=== PATIENT | female | born 1980 | race Caucasian/White ===

== ENCOUNTER → 2016-11-19 | Outpatient (CLI) | payer OTHER ==
--- NOTE | 2016-11-19 10:52 | US ---
November 19, [address] Dino Calero, Thank you for requesting consultation and a detailed obstetrical ultrasound for Mrs. Collier secondary to advanced maternal age. As you know, Slick is a 35 year old G 3, P 1011 . Her due date is 7 by by 10 week ultrasound. Her current gestational age based on this dating is 19 weeks 5 days. He r genetic screening revealed a reassuring NIPT. Her obstetrical history reveals a miscarriage and a term section for failure to dilate. She is having a repeat section. ULTRASOUND Number of fetuses: 1 Placental location: Posterior; no evidence of previa Placental cord insertion: Intraplacental presentation: Breech Cervix: 3.8 cm viewed transabdominally Maximum Vertical Pocket: 4.0 cm The adnexa were evaluated. No pathology was seen. Right ovary is visualized and appears normal. It measures 2.0 x 0.8 x 1.9 cm. Left ovary is visualized and appears normal. It measures 1.9 x 1.1 x 2.1 cm. MEASUREMENTS: Biparietal diameter: 45 mm 19 weeks, 5 days Head circumference: 173 mm 19 weeks, 6 days Abdominal circumference: 146 mm 20 weeks, 0 days Femur length: 30 mm 19 weeks, 2 days Humerus length: 31 mm 20 weeks, 2 days Transcerebellar diameter: 21 mm 20 weeks, 1 days Average ultrasound age: 19 weeks, 5 days Estimated weight: 301 gm weight percentile: 38% ANATOMY Supratentorial brain: Normal including views of the falx, cavum septum pellucidum and choroids Lateral Ventricle: Normal, measuring 5.0 mm Posterior fossa: Normal including the cerebellum and cisterna magna Spine: Normal Nuchal fold: 4.5 mm normal Face: Normal views of the lip and nose area Profile: Normal Palate: Normal appearance of the alveolar ridge Cardiac Exam: Four chamber view of the heart: Normal including intraventricular septum Left Ventricular Outflow Tract: Normal Right Ventricular Outflow Tract: Normal 3 Vessel View: Normal Tracheal View: Normal Aortic Arch: Normal Ductal Arch: Normal SVC/IVC: Limited views Heart Rate: 147 bpm Diaphragm: No overt abnormalities have been detected Stomach: Normal Umbilical cord insertion: Normal Right kidney: Normal Left kidney: Normal Bladder: Normal Number of cord vessels: Three Upper extremities: Normal including the number, and architecture Lower extremities: Normal including the number and architecture Gender: Male IMPRESSION: 1. Intrauterine at 19 w 5 d, MEGHA of 04/10/17. This is consistent with her previously esta blished dates. 2. Today's sonogram reveals a normal appearing fetus. 3. Cervical length measures 3.8 cm, and is without evidence of insufficiency. 4. Advanced maternal age; reassuring NIPT 5. Prior section; posterior placenta RECOMMENDATIONS: I was pleased to review today's ultrasound with your patient. I have reassured her that the gr owth and amniotic fluid volume are appropriate for this gestational age. The detailed anatomic surve y did not reveal any overt abnormalities. Slick is aware that ultrasound is a screening tool and cannot provide definitive genetic diagnosis. Should she desire definitive genetic diagnosis, prasad amaya would need to have a genetic amniocentesis performed. After our discussion regarding the procedure , benefits, risks, alternatives, and limitations to the information received Slick DECLINES amniocent esis. Future ultrasound and consultation is left to your clinical discretion. Thank you for allowing me the opportunity to consult and evaluate your patient. Should you have any questions or concerns please do not hesitate to contact me. This visit was approximately 15 minutes in length with 10 minutes spent in direct face to face consultation reviewing aneuploidy screening ve rsus definitive genetic diagnosis. Sincerely, Yakelin Gloria MD Electronic Health Records Specialist Maternal Medicine Department of Obstetrics & Gynecology [facility]
--- NOTE | 2016-11-19 19:05 | US ---
Obstetrical Sonogram Detail Clinical Indications: Advanced maternal age. Patient has a history of prior section. Technique: Longitudinal and transverse images are obtained. Dr. Gloria was present for the examination . Color Doppler evaluation is employed for assessment of vascularity. Findings: A single fetus is present in breech presentation. Maternal cervical length is estimated at 3.8 cm. T he amount of amniotic fluid is normal with an MVP of 4.0 cm. The placenta is located posterior with no placenta previa. A three-vessel cord is documented with a central insertion on the placenta. motion is identified. cardiac activity is documented with a heart rate estimated at 147 b eats per minute. A four-chamber heart view is obtained. Outflow tracts are visualized. stomach, kidneys and bladder are normal. supratentorial brain, posterior fossa and neural axis appears normal. No abnormality is identified. Maternal ovaries are visualized and appear normal. biometry: Biparietal diameter = 45 mm = 19 weeks 5 days Head circumference = 173 mm = 19 weeks 6 days Abdominal circumference = 146 mm = 20 weeks 0 days Femur length = 30 mm = 19 weeks 2 days Estimated weight 301 +/- 44 grams. This is at the 38th percentile based on last menstrual perio d. The estimated delivery date by ultrasound is April 10, 2017. This compares to the clinical date of Mar. Impression: Single live intrauterine gestation with estimated age by ultrasound of 19 weeks 5 days with an estima raj delivery date of April 10, 2017. No abnormality identified. Please see Dr. Gloria's report for findings and recommendations.
== END ==
LOC: FIMAGING 09:03
PROVIDERS: ATTEND Obstetrics & Gynecology
DX: O09.522 Supervision of elderly multigravida, second trimester (principal); Z3A.19 19 weeks gestation of pregnancy; Z98.891 History of uterine scar from previous surgery

== ENCOUNTER 2017-04-05 07:30 | Inpatient (IN) | payer OTHER ==
[2017-04-05] MEDS ORDERED: ceFAZolin 2 GM/DEXTROSE 100 ML IV ONE (07:43)
[2017-04-05] MEDS ORDERED: LR 500 ML IV ONE (07:43)
[2017-04-05] MEDS ORDERED: PROMETHAZINE HCL 25 MG/ML INJ IVP PRN (07:44)
[2017-04-05] MEDS ORDERED: SIMETHICONE 80 MG TAB CHEW PO PRN (07:44)
[2017-04-05] MEDS ORDERED: LR 1,000 ML IV SCH (08:00)
[2017-04-05 11:15] LABS: % IMMATURE GRANULYOCYTES 1.7 % (0.0-1.1); ABSOLUTE IMMATURE GRANULOCYTES 0.14 10^3/uL (0.00-0.10); ADD DIFF? NO; ADD MORPH? NO; ADD SCAN? NO; ATYPICAL LYMPHOCYTE FLAG 10 (0-99); FRAGMENT RBC FLAG 0 (0-99); HEMATOCRIT 34.4 % (38.0-47.0); HEMOGLOBIN 11.7 g/dL (12.6-16.3); LEFT SHIFT FLG 10 (0-99); LIPEMIA HEMOLYSIS FLAG 90 (0-99); MEAN CELL HEMOGLOBIN 32.1 pg (27.9-34.1); MEAN CELL VOLUME 94.2 fL (81.5-99.8); MEAN PLATELET VOLUME 10.9 fL (8.7-11.7); PLATELET CLUMPS FLAG 0 (0-99); PLATELET COUNT 223 10^3/uL (150-400); RED BLOOD CELL COUNT 3.65 10^6/uL (4.18-5.33); RED CELL DISTRIBUTION WIDTH 13.6 % (11.5-15.2)
[2017-04-05] MEDS ORDERED: CEFAZOLIN 2 GM/DEXTROSE/100 ML BAG IV ONE (11:54)
[2017-04-05] MEDS ORDERED: morphINE PF 5 MG/10 ML INJ ONE (12:16)
[2017-04-05] MEDS ORDERED: morphINE *ANESTHESIA ONLY* 10 MG/ML VIAL ONE (12:16)
[2017-04-05] MEDS ORDERED: OXYTOCIN 100 UNITS/10 ML VIAL ONE (12:21)
[2017-04-05] MEDS ORDERED: LIDOCAINE 1% 300 MG/30 ML SDV ONE (12:42)
[2017-04-05] MEDS ORDERED: TERBUTALINE SULFATE 1 MG/ML VIAL ONE (12:43)
[2017-04-05] MEDS ORDERED: OXYTOCIN 10 UNIT/ML VIAL ONE (12:43)
[2017-04-05] MEDS ORDERED: AMMONIA AROMATIC 1 EACH AMP IH ONE (12:43)
[2017-04-05] MEDS ORDERED: MISOPROSTOL 200 MCG TAB ONE (12:43)
[2017-04-05] MEDS ORDERED: PHENYLEPHRINE HCL 100 MCG/ML SYR ONE ×2 (13:08)
[2017-04-05] MEDS ORDERED: ONDANSETRON 4 MG/2 ML VIAL IVP PRN ×2 (13:33)
[2017-04-05] MEDS ORDERED: PHENYLEPHRINE HCL 100 MCG/ML SYR IVP PRN (13:33)
[2017-04-05] MEDS ORDERED: OXYCODONE/APAP 5/325 TAB PO PRN (13:33)
[2017-04-05] MEDS ORDERED: NALOXONE HCL 0.4 MG/ML INJ IVP PRN ×2 (13:33)
[2017-04-05] MEDS ORDERED: fentaNYL 100 MCG/2 ML INJ IVP PRN (13:33)
--- NOTE | 2017-04-05 13:36 | OBDEL ---
Info Type: Repeat GBS+: No Number of Antibiotic Doses Given: 1 Operative Report - Delivery Pre-op Diagnoses: repeat C/S Post-op Diagnoses: Repeat C/S Nulliparous Prior to Delivery: No Presentation at Delivery: Vertex Procedure: Scheduled, Low Transverse Surgeon: Zuly Shirley Major League Baseball Player: Malu Hightower Anesthesiologist: Maty Hayden Mortuary Beautician/PLANER CHAIN OFFBEARER: Jacqueline Cannon L&D Analgesia/Anesthesia Type: Spinal Complications: Nucal Cord IV Fluid (ml): 1,600 EBL: 800 Data Patino Delivery Date: 04/05/17 Delivery Time: 13:14 Sex of : Male Score (1 Min): 8 Score (5 Min): 9 ICD10 Worksheet Patient Problems: Problems Problem Status Onset delivery delivered Acute
--- NOTE | 2017-04-05 13:44 | POSTANESTH ---
Post Anesthetic Evaluation Cardiovascular Status: Normal, Stable Respiratory Status: Normal, Stable Level of Consciousness/Mental Status: Can Participate in Eval, Alert and Oriented Pain Control: Adequate, Prn Tx Ordered Nausea/Vomiting Control: Adequate, Prn Tx Ordered (No leg movement secondary to spinal blockade.) Complications Possibly Related to Anesthesia: None Noted Notes: Lower extremities still immobile secondary to spinal bupivacaine.
[2017-04-05] MEDS: KETOROLAC 30 MG/1 ML SDV IVP SCH ×2 (17:50→17:59)
[2017-04-06] MEDS: KETOROLAC 30 MG/1 ML SDV IVP SCH ×2 (00:03→05:52)
[2017-04-06 00:09] VITALS: RESP 16
--- NOTE | 2017-04-06 09:43 | OBPP ---
Progress Note Assessment/Plan: Assessment: 36 y.o. female s/p repeat C/S. POD #1. Recovering well with good pain control. Plan: Noted low BP- will recheck BP and CBC now. Also begin PNV with iron daily. consult PRN. 04/06/17 09:40 Subjective: Reports feeling well with good pain control and minimal vaginal bleeding. infant. Incision CDI and healing. Eating and drinking well without nausea/ vomiting. Ambulating without vertigo. Appropriate mood with good support system. Objective: 04/05/17 10:30 Patient ABO/Rh O POSITIVE 04/05/17 10:30 Temp Pulse Resp BP Pulse Ox 36.3 C 71 16 77/41 L 94 04/06/17 09:01 04/06/17 09:01 04/06/17 09:01 04/06/17 09:01 04/06/17 09:01 Uterine Position/Fundal Height: Umbilicus -1 Uterine Tone: Firm Physical Exam - Physical Exam General Appearance: WD/WN, alert, no apparent distress EENT: normal ENT inspection Neck: non-tender, full range of motion, normal inspection Respiratory: lungs clear, normal breath sounds Cardiac/Chest: regular rate, rhythm Abdomen: hypoactive bowel sounds, non-tender, soft Extremities: normal range of motion, non-tender, normal inspection Back: Normal inspection Skin: normal color, warm/dry Neuro/Psych: alert, normal mood/affect, oriented x 3
[2017-04-06] MEDS: IRON POLYSAC/IRON HEME 28 MG TAB PO SCH (10:28)
[2017-04-06 10:48] LABS: % IMMATURE GRANULYOCYTES 0.7 % (0.0-1.1); ABSOLUTE IMMATURE GRANULOCYTES 0.08 10^3/uL (0.00-0.10); ADD DIFF? NO; ADD MORPH? NO; ADD SCAN? NO; ATYPICAL LYMPHOCYTE FLAG 0 (0-99); FRAGMENT RBC FLAG 0 (0-99); HEMATOCRIT 31.9 % (38.0-47.0); LEFT SHIFT FLG 0 (0-99); LIPEMIA HEMOLYSIS FLAG 90 (0-99); MEAN CELL HEMOGLOBIN 32.6 pg (27.9-34.1); MEAN CELL HEMOGLOBIN CONCENTR. 34.5 g/dL (32.4-36.7); MEAN CELL VOLUME 94.7 fL (81.5-99.8); MEAN PLATELET VOLUME 10.5 fL (8.7-11.7); PLATELET CLUMPS FLAG 10 (0-99); PLATELET COUNT 227 10^3/uL (150-400); RED BLOOD CELL COUNT 3.37 10^6/uL (4.18-5.33); RED CELL DISTRIBUTION WIDTH 13.9 % (11.5-15.2)
[2017-04-06] MEDS: IBUPROFEN 600 MG TAB PO PRN ×2 (12:30→18:14)
[2017-04-06] MEDS: HYDROCODONE/APAP 5/325 TAB PO PRN ×2 (17:04→20:48)
[2017-04-06] MEDS: DOCUSATE SODIUM 100 MG CAP PO PRN (20:42)
[2017-04-07] MEDS: IBUPROFEN 600 MG TAB PO PRN ×2 (00:06→09:41)
[2017-04-07] MEDS: HYDROCODONE/APAP 5/325 TAB PO PRN ×3 (00:49→14:24)
--- NOTE | 2017-04-07 08:10 | GOP ---
[f rep st] OPERATIVE REPORT DATE OF OPERATION: 04/05/2017 SURGEON: Zuly Calero MD STUDIO COUCH FRAME BUILDER: Malu Barrera, Certified Nurse Tourist Adviser. ANESTHESIA: Spinal. PREOPERATIVE DIAGNOSIS: Intrauterine at 39+ weeks' gestation, with previous sect ion, desires repeat. POSTOPERATIVE DIAGNOSIS: Intrauterine at 39+ weeks' gestation, with previous sec tion, desires repeat. PROCEDURE PERFORMED: Repeat low transverse section. FINDINGS: Viable male , Apgars 8 and 9, in vertex presentation. Normal uterus, fallopian tub es, and ovaries. ESTIMATED BLOOD LOSS: 800 mL. INDICATIONS: She is a 36-year-old, G2, P1 female, who presents for repeat section at 39+ w eeks' gestation. DESCRIPTION OF PROCEDURE: The patient was taken to the operating room, where she was prepped and dr aped in normal sterile fashion in the dorsal supine position, with a leftward tilt. A surgical time -out was performed verifying the patient's name, date of , planned procedure, and site. A Pfan nenstiel skin incision was made with a scalpel, and carried through to the underlying fascia. The p revious scar was removed in elliptical fashion. The fascia was incised in the midline and extended laterally. The superior aspect of the fascia was grasped with a Sg clamp. The rectus muscles d issected off bluntly and with the Bovie cautery. The inferior aspect of the fascia was grasped with a Sg clamp, and the rectus muscles dissected off bluntly and with the Bovie cautery. The perit oneum was identified and entered bluntly. The peritoneum was divided. The vesicouterine peritoneum was incised in the Metzenbaum scissors, and the bladder flap . The bladder blade was rep laced. The uterus was incised with a scalpel, and the uterine incision was extended laterally with the bandage scissors. The infant was delivered. The cord was clamped and cut. Cord blood was obta ined. The was handed to the nurse practitioner. The placenta was delivered spontan eously. The uterus was exteriorized and clots of all debris. The uterine incision was reapproximat ed with 0 Vicryl in a running, locked fashion in 2 layers. The uterus was returned to the abdomen. The gutters were cleared of all clots and debris. The uterine incision was reinspected and noted t o be hemostatic. The subfascial spaces were inspected and noted to be hemostatic. The fascia was r eapproximated with 0 Vicryl. The subcutaneous tissue was irrigated and closed with 3-0 Vicryl. The skin was closed with 4-0 Monocryl. All counts were correct x2. COMPLICATIONS: None. OUTCOME: Stable to recovery room. /[id number]/MODL
[2017-04-07 09:17] VITALS: BP 93/64; PULSE 76; TEMP 97.6; O2SAT 95
[2017-04-07] MEDS: DOCUSATE SODIUM 100 MG CAP PO PRN (09:40)
[2017-04-07] MEDS: IRON POLYSAC/IRON HEME 28 MG TAB PO SCH (09:40)
== END 2017-04-07 14:30 | disposition home or self-care (01) | DRG 766 ==
LOC: FLD 09:55 → UNDODISIN 15:00 → FOB 17:17
PROVIDERS: ADMIT Obstetrics & Gynecology; ATTEND Obstetrics & Gynecology
PROC: 10D00Z1 Extraction of Products of Conception, Low, Open Approach (ICD-10-PCS; principal; 2017-04-05)
DX: O34.219 Maternal care for unspecified type scar from previous cesarean delivery (principal); Z37.0 Single live birth; Z3A.39 39 weeks gestation of pregnancy
CPT/HCPCS: J0690; J1885; J2274; J2370; J2550; J2590; J3105